=== PATIENT | male | born 1960 | race Caucasian/White ===

== ENCOUNTER 2022-11-17 21:11 | Emergency (ER) | payer SELFPAY ==
[~2022-11-17] VITALS: Ht 185.4 cm; Wt 99.9 kg
== END 2022-11-17 21:35 ==
LOC: EDBD 21:11 → ER 21:20
DX: I46.9 Cardiac arrest, cause unspecified (principal); F12.90 Cannabis use, unspecified, uncomplicated
CPT/HCPCS: 31500; 92950